=== PATIENT | female | born 1970 | race African-American/Black ===

== ENCOUNTER 2016-08-22 09:13 | Day surgery (SDC) | payer OTHER ==
[~2016-08-22 09:13] MED LIST: CALTRAT600 PO; DEX4 PO; MIRALAXPKT PO; ORPHENADRINE100 MG PO; PERCOCET1 TA2 PO; PERCOCET1 TA4 PO; PR25 PO; PROTONIX PO; VELCADE; VELCADE SC; XANAX1 MG PO; ZOFRAN8 PO; ZOVIRAX400 MG PO
[2016-08-22 09:51] LABS: BASOPHILS 0.3 %; BASOPHILS ABSOLUTE 0.01 10/3/uL (0.0-0.16); EOSINOPHILS 1.3 %; EOSINOPHILS ABSOLUTE 0.05 10/3/uL (0.0-0.53); HEMATOCRIT 36.3 % (36.0-48.0); HEMOGLOBIN 12.7 g/dL (12.0-16.0); LYMPHOCYTES ABSOLUTE 1.67 10/3/uL (0.67-4.30); MEAN CORPUSCULAR HEMOGLOB 33.2 pg (26.0-34.0); MEAN CORPUSCULAR VOLUME 94.8 fL (80-100); MEAN PLATELET VOLUME 10.1 fL (9.2-13.0); MONOCYTES 9.5 %; MONOCYTES ABSOLUTE 0.37 10/3/uL (0.21-1.20); NEUTROPHILS 45.9 %; NEUTROPHILS ABSOLUTE 1.78 10/3/uL (2.02-8.40); PLATELET COUNT 248 10/3/uL (150-400); RBC DISTRIBUTION WIDTH 14.4 % (12.0-16.0); RED CELL COUNT 3.83 10/6/uL (4.0-5.6); RETICULOCYTE COUNT 1.3 % (0.5-2.5); RETICULOCYTE COUNT ABSOLUTE 47.9 10/3/uL (20.2-119.8); WHITE BLOOD CELLS 3.9 10/3/uL (4.5-10.5)
[2016-08-22 09:55] LABS: MANUAL DIFF NO %
[2016-08-22 10:16] LABS: BUN (BLOOD UREA NITROGEN) 14 MG/DL (6-23); CALCIUM, SERUM 8.9 MG/DL (8.5-10.4); CHLORIDE, SERUM 107 MMOL/L (96-112); CO2 (CARBON DIOXIDE) 27 MMOL/L (24-34); CREATININE 0.84 MG/DL (0.55-1.02); GFR AFRICAN AMERICAN 97 ML/MIN (>=60); GFR NON AFRICAN AMERICAN 83 ML/MIN (>=60); GLUCOSE, SERUM 108 MG/DL (60-99); SODIUM, SERUM 143 MMOL/L (135-148)
[2016-08-22 10:17] LABS: POTASSIUM, SERUM 4.1 MMOL/L (3.5-5.3)
== END 2016-08-22 13:07 | disposition home or self-care (01) ==
LOC: SDC 09:13
PROVIDERS: Pathology Cytopathology
PROC: 07DR3ZX Extraction of Iliac Bone Marrow, Percutaneous Approach, Diagnostic (ICD-10-PCS; principal; 2016-08-22 11:00)
DX: C79.51 Secondary malignant neoplasm of bone (principal); I12.9 Hypertensive chronic kidney disease with stage 1 through stage 4 chronic kidney disease, or unspecified chronic kidney disease; N18.9 Chronic kidney disease, unspecified; E83.52 Hypercalcemia; G43.909 Migraine, unspecified, not intractable, without status migrainosus; K21.9 Gastro-esophageal reflux disease without esophagitis; R60.9 Edema, unspecified; D64.9 Anemia, unspecified; E86.0 Dehydration; Z98.890 Other specified postprocedural states
CPT/HCPCS: 80048; 84703; 85025; 85045; 88305; 88311; 88313; 88342; J3010